=== PATIENT | female | born 1975 ===

== ENCOUNTER → 2022-03-23 | Day surgery (SDC) | payer OTHER | END | disposition home or self-care (01) | LOC: ADM 03-21 07:45 → CIR.AMB 05:40 | PROVIDERS: ATTEND Orthopaedic Surgery | DX: M24.821 Other specific joint derangements of right elbow, not elsewhere classified (principal); M66.231 Spontaneous rupture of extensor tendons, right forearm; Z20.822 Contact with and (suspected) exposure to COVID-19 ==